=== PATIENT | male | born 1965 | race Caucasian/White ===

== ENCOUNTER 2023-06-25 16:37 | Emergency (ER) | payer BC ==
[~2023-06-25] VITALS: Ht 188 cm; Wt 102.1 kg
[~2023-06-25 16:37] MED LIST: ACETAMINOPHEN-1 EAC4 PO; CLINDAMYCIN HC300 MG PO; ONDANSETRON ODT4 MG PO
[2023-06-25 17:00] VITALS: O2SAT 99
[2023-06-25] MEDS ORDERED: LACTULOSE SYRUP 20 GM/30 ML UDC PO ONE (17:30)
[2023-06-25] MEDS ORDERED: MAGNESIUM HYDROXIDE 30 ML UDC PO ONE (17:30)
[2023-06-25] MEDS ORDERED: MIRALAX17 GM PO (18:31)
[2023-06-25] MEDS ORDERED: MAGNESIUM/ALUMINUM/SIMETHICONE 30 ML UDC ONE (18:33)
== END 2023-06-25 18:45 | disposition home or self-care (01) ==
LOC: ER 16:58
DX: R10.9 Unspecified abdominal pain (principal); E78.5 Hyperlipidemia, unspecified
CPT/HCPCS: 74018; 99283

== ENCOUNTER → 2023-08-05 | Day surgery (SDC) | payer BC ==
[~2023-08-05] MED LIST changes: +ALLOPURINOL300 MG PO; +ASPIRIN EC81 MG PO; +ENDUR-ACIN250 MG PO; +ESMOLOL HCL 100MG/10ML 10 MG/ML VIAL ONE; +LACTATED RINGER'S 1,000 ML ONE; +LIDOCAINE HCL 2% LOCAL INJ 5 ML SDV VIAL INJ ONE; +MIRALAX17 GM PO; +PROPOFOL IV EMULSION 10 MG/ML 50 ML VIAL IV ONE
[2023-08-05 13:02] VITALS: TEMP 98.4
[2023-08-05 13:30] VITALS: BP 103/64; PULSE 92; RESP 15; O2SAT 97
[2023-08-05 15:56] LABS: WBC,FECAL (FECAL LACTOFERRIN) NEGATIVE (NEGATIVE)
[2023-08-07 13:12] LABS: ENDOMYSIAL ANTIBODIES, IGA Negative (Negative)
== END | disposition home or self-care (01) ==
LOC: OR 10:49
PROVIDERS: ATTEND Internal Medicine Gastroenterology
DX: K52.9 Noninfective gastroenteritis and colitis, unspecified (principal); K63.5 Polyp of colon; K63.89 Other specified diseases of intestine; K57.30 Diverticulosis of large intestine without perforation or abscess without bleeding; K62.89 Other specified diseases of anus and rectum; K64.8 Other hemorrhoids; K64.4 Residual hemorrhoidal skin tags; Z71.3 Dietary counseling and surveillance; M10.9 Gout, unspecified; Z71.89 Other specified counseling; Z88.0 Allergy status to penicillin; Z01.810 Encounter for preprocedural cardiovascular examination; Z79.82 Long term (current) use of aspirin; Z79.899 Other long term (current) drug therapy; Z68.32 Body mass index [BMI] 32.0-32.9, adult
CPT/HCPCS: 45380; 45385; 82784; 83516; 83630; 83993; 86140; 86256; 87045; 87177; 87324; 87328; 87449; 93005; J2001; J2704; J7121; 45378